=== PATIENT | male | born 1990 | race Hispanic/Latino ===

== ENCOUNTER 2018-11-17 08:37 | Emergency (ER) | payer OTHER ==
[2018-11-17] MEDS ORDERED: ONDANSETRON ODT 4 MG TAB ONE (09:00)
[2018-11-17] MEDS ORDERED: FAMOTIDINE 20MG TAB 20 MG TAB ONE (09:19)
[2018-11-17] MEDS ORDERED: ONDANSETRON HCL 4 MG/2 ML VIAL ONE (10:26)
[2018-11-17 10:40] LABS: BASOPHILS % (AUTO) 0.3 % (0.0-5.0); EOSINOPHILS % (AUTO) 1.3 % (0.0-8.0); HEMATOCRIT 48.1 % (42-54); MEAN CORPUSCULAR HEMOGLOBIN 31.7 pg (27.0-33.0); MEAN CORPUSCULAR HGB CONC 33.3 g/dL (32.0-36.0); MONOCYTES % (AUTO) 5.4 % (3.0-13.0); PLATELET COUNT (AUTO) 169 K/uL (130-400); RED BLOOD CELL COUNT(AUTO) 5.06 MIL/uL (4.50-6.20); RED CELL DISTRIBUTION WIDTH 13.2 % (11.0-15.5); WHITE BLOOD COUNT (AUTO) 13.3 K/uL (4.8-10.8)
[2018-11-17 10:45] LABS: APPEARANCE,URINE Clear (CLEAR); BILIRUBIN,URINE Negative (NEGATIVE); COLOR,URINE Yellow (YELLOW); GLUCOSE, URINE (UA) Negative (NEGATIVE); KETONES,URINE Trace mg/dL (NEGATIVE); LEUKOCYTE ESTERASE ,URINE Negative (NEGATIVE); NITRATE,URINE Negative (NEGATIVE); OCCULT BLOOD,URINE Negative (NEGATIVE); PH,URINE 5.5 (5.0-8.0); PROTEIN,URINE Negative (NEGATIVE)
[2018-11-17 10:51] LABS: AMPHET/METH SCREEN,URINE NEGATIVE (NEGATIVE); BARBITURATE SCREEN, URINE NEGATIVE (NEGATIVE); BENZODIAZEPINES SCREEN,URINE NEGATIVE (NEGATIVE); CANNABINOID SCREEN,URINE POSITIVE (NEGATIVE); COCAINE SCREEN,URINE NEGATIVE (NEGATIVE); OPIATE SCREEN,URINE NEGATIVE (NEGATIVE); PHENCYCLIDINE SCREEN,URINE NEGATIVE (NEGATIVE)
[2018-11-17 11:31] LABS: CREATININE 0.7 mg/dL (0.5-1.5); POTASSIUM 3.9 mmol/L (3.5-5.1)
[2018-11-17 11:37] LABS: ALBUMIN 4.3 g/dL (3.5-5.0); BILIRUBIN,DIRECT 0.1 mg/dL (0.0-0.3); BILIRUBIN,TOTAL 0.7 mg/dL (0.2-1.0); TOTAL PROTEIN, SERUM 8.4 g/dL (6.0-8.3)
== END 2018-11-17 12:16 | disposition home or self-care (01) ==
LOC: EDH 08:37
DX: K52.9 Noninfective gastroenteritis and colitis, unspecified (principal); Z72.0 Tobacco use
CPT/HCPCS: 36415; 80048; 80076; 80305; 81003; 83690; 85025; 96374; 99284; J2405

== ENCOUNTER 2019-08-08 12:45 | Emergency (ER) | payer SELFPAY ==
[2019-08-08] MEDS ORDERED: DiphenhydrAMINE HCL 50 MG/ML VIAL ONE (14:48)
[2019-08-08] MEDS ORDERED: KETOROLAC TROMETHAMINE 30MG/ML ONE (14:48)
[2019-08-08] MEDS ORDERED: ONDANSETRON ODT 4 MG TAB ONE (14:49)
== END 2019-08-08 15:25 | disposition home or self-care (01) ==
LOC: EDH 12:45
DX: R51 Headache (principal)
CPT/HCPCS: 70450; 96372 ×2; 99284; J1200; J1885

== ENCOUNTER 2019-08-30 11:26 | Emergency (ER) | payer OTHER | END 2019-08-30 12:17 | disposition home or self-care (01) | LOC: EDH 11:26 | DX: J30.9 Allergic rhinitis, unspecified (principal); Z72.0 Tobacco use | CPT/HCPCS: 99281 ==

== ENCOUNTER 2020-02-24 14:31 | Emergency (ER) | payer OTHER ==
[2020-02-24] MEDS ORDERED: ACETAMINOPHEN EXTRA STRENGTH 500 MG TABLET ONE (17:22)
[2020-02-24 17:38] LABS: BASOPHILS % (AUTO) 0.8 % (0.0-5.0); EOSINOPHILS % (AUTO) 3.8 % (0.0-8.0); HEMATOCRIT 43.6 % (42-54); LYMPHOCYTES % (AUTO) 16.3 % (21.0-51.0); MEAN CORPUSCULAR HEMOGLOBIN 30.3 pg (27.0-33.0); MEAN CORPUSCULAR HGB CONC 33.3 g/dL (32.0-36.0); MONOCYTES % (AUTO) 8.8 % (3.0-13.0); PLATELET COUNT (AUTO) 222 K/uL (130-400); RED BLOOD CELL COUNT(AUTO) 4.79 MIL/uL (4.50-6.20); RED CELL DISTRIBUTION WIDTH 12.9 % (11.0-15.5); WHITE BLOOD COUNT (AUTO) 10.4 K/uL (4.8-10.8)
[2020-02-24 17:47] LABS: CREATININE 0.8 mg/dL (0.5-1.5)
[2020-02-24 17:52] LABS: BILIRUBIN,TOTAL 0.2 mg/dL (0.2-1.0); TOTAL PROTEIN, SERUM 8.5 g/dL (6.0-8.3)
[2020-02-24 18:20] LABS: APPEARANCE,URINE Clear (CLEAR); BILIRUBIN,URINE Negative (NEGATIVE); COLOR,URINE Dark Yellow (YELLOW); GLUCOSE, URINE (UA) Negative (NEGATIVE); KETONES,URINE Trace mg/dL (NEGATIVE); LEUKOCYTE ESTERASE ,URINE Negative (NEGATIVE); NITRATE,URINE Negative (NEGATIVE); OCCULT BLOOD,URINE Negative (NEGATIVE); PH,URINE 5.5 (5.0-8.0); PROTEIN,URINE Negative (NEGATIVE)
[2020-02-24 18:34] LABS: B-TYPE NATRIURETIC PEPTIDE 26 pg/mL (0-100)
== END 2020-02-24 18:54 | disposition home or self-care (01) ==
LOC: EDH 14:31
DX: T67.5XXA Heat exhaustion, unspecified, initial encounter (principal); G93.3 Postviral and related fatigue syndromes; R07.89 Other chest pain; R03.0 Elevated blood-pressure reading, without diagnosis of hypertension; Z72.0 Tobacco use; X58.XXXA Exposure to other specified factors, initial encounter; Y93.89 Activity, other specified; Y92.89 Other specified places as the place of occurrence of the external cause; Y99.8 Other external cause status
CPT/HCPCS: 36415; 71045; 80053; 81003; 82550; 83880; 84484; 85025; 93005

== ENCOUNTER 2020-11-13 10:39 | Emergency (ER) | payer SELFPAY ==
[2020-11-13] MEDS ORDERED: DIAZEPAM 5 MG TABLET ONE (12:39)
[2020-11-13] MEDS ORDERED: DEXAMETHASONE SOD PHOSPHATE 10MG/ML 1ML VIAL ONE (12:39)
[2020-11-13] MEDS ORDERED: KETOROLAC TROMETHAMINE 30MG/ML ONE (12:39)
== END 2020-11-13 13:04 | disposition home or self-care (01) ==
LOC: EDH 10:39
DX: M54.5 Low back pain (principal); M62.838 Other muscle spasm; Z72.0 Tobacco use
CPT/HCPCS: 96372 ×2; 99284; J1100; J1885

== ENCOUNTER 2020-12-12 11:51 | Emergency (ER) | payer SELFPAY ==
[~2020-12-12] VITALS: Ht 182.9 cm; Wt 163.3 kg
[2020-12-12 12:36] VITALS: BP 135/74
[2020-12-12] MEDS ORDERED: KETOROLAC 60 MG VIAL (30MG/ML) IM ONE (12:45)
[2020-12-12] MEDS ORDERED: CYCLOBENZAPRINE HCL 10 MG TABLET PO ONE (12:45)
[2020-12-12] MEDS ORDERED: CYCL10 PO (13:03)
[2020-12-12] MEDS ORDERED: NAPR-1180 PO (13:03)
== END 2020-12-12 13:15 | disposition home or self-care (01) ==
LOC: EDH 11:51
DX: M54.42 Lumbago with sciatica, left side (principal)
CPT/HCPCS: 72100; J1885

== ENCOUNTER 2021-05-29 07:02 | Emergency (ER) | payer SELFPAY ==
[~2021-05-29] VITALS: Ht 182.9 cm; Wt 165.6 kg
[~2021-05-29 07:02] MED LIST: CYCL10TA16 PO; NAPR-1180 PO
[2021-05-29 07:42] LABS: BASOPHILS % (AUTO) 0.7 % (0.0-5.0); EOSINOPHILS % (AUTO) 2.7 % (0.0-8.0); HEMATOCRIT 44.6 % (42-54); LYMPHOCYTES % (AUTO) 19.3 % (21.0-51.0); MEAN CORPUSCULAR HEMOGLOBIN 30.3 pg (27.0-33.0); MEAN CORPUSCULAR HGB CONC 31.6 g/dL (32.0-36.0); MEAN CORPUSCULAR VOLUME 95.7 fL (79-99); MONOCYTES % (AUTO) 9.3 % (3.0-13.0); NEUTROPHILS % (AUTO) 67.3 % (40.0-77.0); PLATELET COUNT (AUTO) 215 K/uL (130-400); RED BLOOD CELL COUNT(AUTO) 4.66 MIL/uL (4.50-6.20); RED CELL DISTRIBUTION WIDTH 13.2 % (11.0-15.5); WHITE BLOOD COUNT (AUTO) 8.9 K/uL (4.8-10.8)
[2021-05-29 07:50] LABS: CREATININE 0.8 mg/dL (0.5-1.5); POTASSIUM 4.1 mmol/L (3.5-5.1)
[2021-05-29 07:54] LABS: ALBUMIN 3.7 g/dL (3.5-5.0); BILIRUBIN,TOTAL 0.1 mg/dL (0.2-1.0); MAGNESIUM 2.1 mg/dL (1.80-2.40)
[2021-05-29 08:27] LABS: APPEARANCE,URINE Clear (CLEAR); BILIRUBIN,URINE Negative (NEGATIVE); COLOR,URINE Yellow (YELLOW); GLUCOSE, URINE (UA) Negative (NEGATIVE); KETONES,URINE Negative (NEGATIVE); LEUKOCYTE ESTERASE ,URINE Negative (NEGATIVE); NITRATE,URINE Negative (NEGATIVE); OCCULT BLOOD,URINE Negative (NEGATIVE); PH,URINE 5.5 (5.0-8.0); PROTEIN,URINE Negative (NEGATIVE); UROBILINOGEN,URINE 0.2 mg/dL (0.2-1.0)
[2021-05-29] MEDS ORDERED: KETOROLAC 60 MG VIAL (30MG/ML) IM SCH (08:30)
[2021-05-29 08:34] LABS: AMPHET/METH SCREEN,URINE NEGATIVE (NEGATIVE); BARBITURATE SCREEN, URINE NEGATIVE (NEGATIVE); BENZODIAZEPINES SCREEN,URINE NEGATIVE (NEGATIVE); CANNABINOID SCREEN,URINE POSITIVE (NEGATIVE); COCAINE SCREEN,URINE NEGATIVE (NEGATIVE); OPIATE SCREEN,URINE NEGATIVE (NEGATIVE); PHENCYCLIDINE SCREEN,URINE NEGATIVE (NEGATIVE)
[2021-05-29] MEDS ORDERED: DICL50TA7 PO (09:29)
[2021-05-29 09:36] VITALS: BP 123/74
== END 2021-05-29 10:01 | disposition home or self-care (01) ==
LOC: EDH 07:02
DX: R07.89 Other chest pain (principal); F12.90 Cannabis use, unspecified, uncomplicated; F17.210 Nicotine dependence, cigarettes, uncomplicated; Z79.1 Long term (current) use of non-steroidal anti-inflammatories (NSAID)
CPT/HCPCS: 36415; 71045; 80053; 80061; 80305; 81003; 82550; 83735; 84484; 85025; 93005; 96372; 99285; J1885

== ENCOUNTER 2021-08-19 13:35 | Emergency (ER) | payer OTHER ==
[~2021-08-19] VITALS: Ht 182.9 cm; Wt 173.7 kg
[~2021-08-19 13:35] MED LIST changes: +DICL50TA7 PO
[2021-08-19 13:40] VITALS: BP 139/58
[2021-08-19] MEDS ORDERED: HYDROCODONE/ACETAMINOPHEN 10/325 MG TAB PO ONE (14:00)
[2021-08-19] MEDS ORDERED: CYCLOBENZAPRINE HCL 10 MG TABLET PO ONE (14:00)
[2021-08-19] MEDS ORDERED: KETOROLAC 60 MG VIAL (30MG/ML) IM ONE (14:00)
[2021-08-19] MEDS ORDERED: CYCL10TA16 PO (14:49)
[2021-08-19] MEDS ORDERED: IBUP-1552 PO (14:49)
== END 2021-08-19 15:03 | disposition home or self-care (01) ==
LOC: EDH 13:35
DX: M54.50 Low back pain, unspecified (principal); Z98.890 Other specified postprocedural states; Z79.899 Other long term (current) drug therapy
CPT/HCPCS: 72100; 96372; 99283; J1885

== ENCOUNTER 2022-04-14 16:27 | Emergency (ER) | payer OTHER ==
[~2022-04-14] VITALS: Ht 182.9 cm; Wt 179.6 kg
[~2022-04-14 16:27] MED LIST changes: +IBUP-1552 PO; +ONDA4TAB10 PO
[2022-04-14] MEDS ORDERED: CYCLOBENZAPRINE HCL 10 MG TABLET PO ONE (17:00)
[2022-04-14] MEDS ORDERED: IBUP-2071 PO (17:17)
[2022-04-14] MEDS ORDERED: CYCL10TA16 PO (17:17)
[2022-04-14 17:18] VITALS: BP 134/76
== END 2022-04-14 17:24 | disposition home or self-care (01) ==
LOC: EDH 16:27
DX: S39.012A Strain of muscle, fascia and tendon of lower back, initial encounter (principal); E66.01 Morbid (severe) obesity due to excess calories; Z68.43 Body mass index [BMI] 50.0-59.9, adult; X58.XXXA Exposure to other specified factors, initial encounter; Y93.89 Activity, other specified; Y92.89 Other specified places as the place of occurrence of the external cause; Y99.8 Other external cause status
CPT/HCPCS: 72100

== ENCOUNTER 2022-04-20 23:42 | Emergency (ER) | payer OTHER ==
[~2022-04-20] VITALS: Ht 182.9 cm; Wt 176.9 kg
[~2022-04-20 23:42] MED LIST changes: +IBUP-2071 PO
[2022-04-21] MEDS ORDERED: IBUP-1493 PO (00:58)
[2022-04-21] MEDS ORDERED: OSEL75 PO (00:58)
[2022-04-21] MEDS ORDERED: DIPH1TAB PO (01:06)
[2022-04-21] MEDS ORDERED: ONDANSETRON ODT 4MG TAB SL ONE (01:30)
[2022-04-21] MEDS ORDERED: 0.9%NACL 1000ML 2,000 ML IV ONE (01:30)
[2022-04-21] MEDS ORDERED: IBUPROFEN 800 MG TAB PO ONE (01:30)
[2022-04-21] MEDS ORDERED: ACETAMINOPHEN 325 MG TAB PO ONE (01:30)
[2022-04-21 01:56] VITALS: BP 122/80
== END 2022-04-21 02:13 | disposition home or self-care (01) ==
LOC: EDH 23:42
DX: J10.1 Influenza due to other identified influenza virus with other respiratory manifestations (principal); Z20.822 Contact with and (suspected) exposure to COVID-19; F12.90 Cannabis use, unspecified, uncomplicated; E66.01 Morbid (severe) obesity due to excess calories; Z68.43 Body mass index [BMI] 50.0-59.9, adult; Z98.890 Other specified postprocedural states; Z79.899 Other long term (current) drug therapy
CPT/HCPCS: 99284; 87635; 87804 ×2; C9803; J7030

== ENCOUNTER 2024-06-13 22:26 | Emergency (ER) | payer SELFPAY ==
[~2024-06-13] VITALS: Ht 182.9 cm; Wt 176.9 kg
[~2024-06-13 22:26] MED LIST changes: +DIPH1TAB PO; +FAMO-136 PO; +IBUP-1493 PO; +METR-172 PO; +ONDA-243 PO; -ONDA4TAB10 PO; +OSEL75 PO
[2024-06-13 22:28] VITALS: BP 116/115; PULSE 92; RESP 20; TEMP 97.8
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
[2024-06-13] MEDS: ondanSETRON 4MG INJ IVP ONE (22:53)
[2024-06-13] MEDS: morPHINE 4 MG SYG IVP ONE ×2 (22:55→23:37)
[2024-06-13] MEDS: teTANUS/diphthERIA TOXOID [ADULT] 0.5 ML VIAL IM ONE (22:58)
[2024-06-13] MEDS: ceFAZolin SODIUM 2 GM VIAL IVPB STA (22:58)
[2024-06-13] MEDS: TETRACAINE HCL 0.5% 4 ML OPHTH SOLN OP SCH (23:00)
[2024-06-13] MEDS: FLUORESCEIN SODIUM 1 STRIP STRIP OP SCH (23:00)
[2024-06-13 23:01] LABS: BASOPHILS # (AUTO) 0.07 K/uL (0.00-0.20); BASOPHILS % (AUTO) 0.8 % (0.0-5.0); EOSINOPHILS # (AUTO) 0.19 K/uL (0.00-0.70); EOSINOPHILS % (AUTO) 2.2 % (0.0-8.0); HEMATOCRIT 43.9 % (42-54); IMMATURE GRANULOCYTE ABSOLUTE 0.04 K/uL (0-1); LYMPHOCYTES # (AUTO) 2.3 K/uL (1.0-4.8); LYMPHOCYTES % (AUTO) 26.9 % (21.0-51.0); MEAN CORPUSCULAR HEMOGLOBIN 30.8 pg (27.0-33.0); MEAN CORPUSCULAR VOLUME 93.2 fL (79-99); MONOCYTES # (AUTO) 0.7 K/uL (0.1-1.0); MONOCYTES % (AUTO) 8.6 % (3.0-13.0); NEUTROPHILS # (AUTO) 5.2 K/uL (1.8-7.7); PLATELET COUNT (AUTO) 228 K/uL (130-400); RED BLOOD CELL COUNT(AUTO) 4.71 MIL/uL (4.50-6.20); WHITE BLOOD COUNT (AUTO) 8.6 K/uL (4.8-10.8)
[2024-06-13 23:16] LABS: CREATININE 0.9 mg/dL (0.5-1.3); INR 0.97 (0.85-1.15); POTASSIUM 3.5 mmol/L (3.5-5.1); PROTHROMBIN TIME 10.9 SEC (9.6-11.6)
[2024-06-13 23:17] LABS: PARTIAL THROMBOPLASTIN TIME 26.4 SEC (26.3-35.5)
[2024-06-13] MEDS: LIDOCAINE HCL 1% 20 ML VIAL INJ SCH (23:30)
[2024-06-13] MEDS: NEOMY SULF/BACITRA/POLYMYXIN B 1 EACH PACKET TP ONE (23:39)
--- NOTE | 2024-06-13 23:42 | NUR ---
LACERATION TO R HAND SUTURED BY Izzy TATUM NP. LIDOCAINE 10 ML ADMINISTERED TO SITE, WOUND CLEANED AND IRRIGATED WITH NS. PATIENT TOLERATED WELL
[2024-06-14] MEDS: morPHINE 4 MG SYG IVP ONE (00:02)
[2024-06-14] MEDS: ERYTHROMYCIN BASE 0.5% OPHTH OINT 1 GM TUBE OD STA (00:47)
[2024-06-14] MEDS: acetaMINOPHEN WITH coDEINE 1 TAB TAB PO ONE (00:47)
[2024-06-14] MEDS ORDERED: ERYT1OIN7 OP (01:01)
[2024-06-14] MEDS ORDERED: ACET-2079 PO (01:01)
[2024-06-14] MEDS ORDERED: CEPH500T PO (01:01)
[2024-06-14] MEDS ORDERED: NEOM30OI18 TP (01:01)
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
== END 2024-06-14 01:27 | disposition home or self-care (01) ==
LOC: MERGE 22:26 → EDH 22:26
DX: S61.411A Laceration without foreign body of right hand, initial encounter (principal); S05.01XA Injury of conjunctiva and corneal abrasion without foreign body, right eye, initial encounter; T15.91XA Foreign body on external eye, part unspecified, right eye, initial encounter; W39.XXXA Discharge of firework, initial encounter; Y93.89 Activity, other specified; Y92.89 Other specified places as the place of occurrence of the external cause; Y99.8 Other external cause status
CPT/HCPCS: 99284; 96365; 96375; 80048; 85025; 85610; 85730; 36415; 90714; 73130; 96376 ×2; 90471; 12004; J2405; J2270 ×3; J0690